=== PATIENT | male | born 1940 | race Caucasian/White ===

== ENCOUNTER 2017-03-25 01:59 | Inpatient (IN) | payer OTHER, MEDICARE ==
[2017-03-25] MEDS ORDERED: ONDANSETRON 4 MG/2 ML VIAL IVPB ONE (02:06)
[2017-03-25] MEDS ORDERED: SODIUM CHLORIDE 1,000 ML IV ONE (02:06)
--- NOTE | 2017-03-25 02:11 | PDOC ---
History of Present Illness - General Chief Complaint: Pain Stated Complaint: ABD PAIN/VOMITING Time Seen by Provider: 03/25/17 02:05 History Source: Patient Exam Limitations: No Limitations - History of Present Illness Initial Comments: 03/25/17 02:11 This is a elderly 76-year-old male who comes in complaining of nausea vomiting and abdominal pain. Patient said symptoms began approximately 4 hours ago. Patient said he been some peanuts prior to the onset of the vomiting however patient denies of pain at ALLERGY and has had peanuts many times in the past. Patient has a history significant for abdominal surgery a number years ago patient said he had surgery on his colon. Patient otherwise says he is healthy he denies any medications and any medical problems. Patient denies history of similar symptoms in the past. PAST MEDICAL HISTORY: Hemorrhoids PAST SURGICAL HISTORY: As per history of present illness FAMILY HISTORY: no pertinant history SOCIAL HISTORY: Pt lives with family and is retired MEDICATIONS: reviewed ALLERGIES: As per nursing notes Review of Systems General: No fevers or chills, no weakness, no weight loss HEENT: No change in vision. No sore throat,. No ear pain CardioVascular: No chest pain or shortness of breath Respiratory:No cough, or wheezing. Gastrointestinal: Nausea and vomiting, no diarrhea, hemorrhoids with some bleeding from the hemorrhoids as per patient no bloody stools Genitourinary: No dysuria, hematuria, or frequency Musculoskeletal: No joint or muscle pain or swelling Neurologic: No headache, vertigo, dizziness or loss of consciousness Psychiatric: nor depression Skin: No rashes or easy bruising Endocrine: no increased thirst or abnormal weight change Allergic: no skin or latex allergy All other systems reviewed and normal Exam: General: Well-nourished well-developed individual, no acute distress HEENT: Throat: Normal, tonsils normal, no erythema or exudate Neck: Supple, no meningeal signs, no lymphadenopathy Eyes::Pupils equal reactive and round, extraocular motion intact Chest: Nontender to palpation Cardiac: S1-S2 normal, regular rate and rhythm, no murmurs rubs or gallops Respiratory: Lungs clear to auscultation bilateral Abdomen: Soft, somewhat distended with some high-pitched bowel sounds and moderately tender to palpation diffusely, no guarding or rebound Extremities: Warm, dry, no cyanosis, clubbing, or edema Skin: No rashes Neuro: Alert and oriented x3, nonfocal exam, grossly intact, normal gait Psych: Normal mood and affect 03/25/17 02:44 Assessment and plan: This is a 76-year-old male who comes in complaining of nausea and vomiting. Patient had a workup that included a CAT scan that showed a small bowel obstruction. Patient will be admitted to an inpatient bed. Patient admitted under Dr. Simmons service discussed case with Dr. Simmons Past History - Past Medical History Allergies/Adverse Reactions: Allergies Allergy/AdvReac Type Severity Reaction Status Date / Time No Known Allergies Allergy Verified 05/16/16 13:07 - Surgical History Abdominal Surgery: Yes - Psycho/Social/Smoking Cessation Hx Anxiety: No Suicidal Ideation: No Smoking History: Unknown if ever smoked Have you smoked in the past 12 months: No Number of Cigarettes Smoked Daily: 0 Information on smoking cessation initiated: No Hx Alcohol Use: No Drug/Substance Use Hx: No Substance Use Type: Alcohol *Physical Exam - Vital Signs Last Vital Signs Temp Pulse Resp BP Pulse Ox 97.8 F 95 H 14 150/90 99 03/25/17 02:02 03/25/17 02:02 03/25/17 02:02 03/25/17 02:02 03/25/17 02:02 ED Treatment Course - LABORATORY CBC & Chemistry Diagram: 03/25/17 08:20 03/25/17 08:20 *DC/Admit/Observation/Transfer Diagnosis at time of Disposition: Small bowel obstruction - Discharge Dispostion Condition at time of disposition: Good Admit: Yes
[2017-03-25] MEDS ORDERED: ONDANSETRON 4 MG/2 ML VIAL ONE (02:21)
[2017-03-25 03:07] LABS: BASOPHIL 0.3 % (0-2.0); EOSINOPHIL 0.1 % (0-4.5); MCH 27.9 pg (25.7-33.7); MCHC 32.8 g/dl (32.0-35.9); MEAN CELL VOLUME 85.2 fl (80-96); MEAN PLT VOLUME 9.1 fl (7.5-11.1); NEUTROPHILS 83.8 % (42.8-82.8); PLATELET COUNT 301 K/MM3 (134-434); RDW 13.6 % (11.9-15.9); WHITE BLOOD COUNT 15.6 K/mm3 (4.0-10.0)
[2017-03-25 03:34] LABS: ALBUMIN 4.2 g/dl (3.4-5.0); BILIRUBIN,TOTAL 1.2 mg/dL (0.2-1.0); COCKROFT - GAULT 71.66; CREATININE 1.2 mg/dL (0.7-1.3)
[2017-03-25 03:37] LABS: TROPONIN I 0.02 ng/ml (0.00-0.05)
[2017-03-25] MEDS ORDERED: SODIUM CHLORIDE 1,000 ML IV SCH ×2 (04:10→08:42)
[2017-03-25] MEDS ORDERED: ONDANSETRON 4 MG/2 ML VIAL IVPB PRN (04:10)
[2017-03-25] MEDS ORDERED: HYDROmorphone HCL CARPU-JECT 1 MG/1 ML DISP.SYRIN IVPB PRN (04:10)
[2017-03-25 05:42] VITALS: BMI 27.8
--- NOTE | 2017-03-25 07:53 | EKG ---
Test Reason : Blood Pressure : / mmHG Vent. Rate : 086 BPM Atrial Rate : 086 BPM P-R Int : 198 ms QRS Dur : 084 ms QT Int : 362 ms P-R-T Axes : 045 007 021 degrees QTc Int : 433 ms SINUS RHYTHM LEFT ATRIAL ENLARGEMENT NO PREVIOUS ECGS AVAILABLE Confirmed by TIBURCIO ROMERO MD ([id number] on 03/25/2017 7:53:20 AM Referred By: MD TONG Confirmed By:TIBURCIO ROMERO MD
[2017-03-25] MEDS ORDERED: SODIUM CHLORIDE 0.9% 1000 ML INFUS.BAG IV ONE (08:40)
[2017-03-25 09:12] LABS: MCH 28.9 pg (25.7-33.7); MCHC 33.9 g/dl (32.0-35.9); MEAN PLT VOLUME 8.4 fl (7.5-11.1); PLATELET COUNT 331 K/MM3 (134-434); RDW 12.9 % (11.9-15.9); WHITE BLOOD COUNT 10.9 K/mm3 (4.0-10.8)
[2017-03-25 09:23] LABS: INR 1.15 (0.82-1.09); PROTHROMBIN TIME (PATIENT) 12.8 SEC (10.2-13.0)
[2017-03-25 09:32] LABS: ANION GAP 9 (8-16); CO2 26 mmol/L (22-28); GLUCOSE,RANDOM 129 mg/dl (74-106)
[2017-03-25 10:08] LABS: CPK(DFH) 88 IU/L (38-174)
[2017-03-25 10:57] LABS: TROPONIN I (DFP) < 0.03 ng/ml (0.03-0.50)
--- NOTE | 2017-03-25 12:35 | CONSULT ---
Consult Consult Specialty:: General Surgery Referred by:: Dr. Simmons Reason for Consultation:: small bowel obstruction - History of Present Illness Chief Complaint: bloating, upper abd pain, vomiting History of Present Illness: Pt seen and examined at bedside with family present. 76yoM with h/o colon CA over 10 yrs ago s/p left colectomy presented to ER c/o upper abdominal pain, bloating and vomiting. He has had bloating on and off for about a week, and saw his PMD, who was not concerned. He has been eating normally and having normal BMs daily, except it was hard a few days ago and got better with MOM. Yesterday , he had more pain in the upper abdomen, left greater than right, and started vomiting, at which point he came to the ER. He had emesis x 1-2 at hospital, but tolerated oral contrast for CT. He is mildly nauseated now, but feeling better. Workup showed wbc 15 (now down to 10), normal lytes, BUN/Cr slightly up , and CT showed proximal SBO with dilated, contrast-filled loops in the left upper and mid-abdomen. On my review, colon appearance is consistent with left colectomy, and there appear to be about 3 clips in the splenic flexure area. Distal SB is decompressed; there is some stool and gas throughout the colon. Pt reports normal BM yesterday, no flatus today, probably not yesterday, but + flatus before that. He was admitted to medicine with small bowel obstruction, and the nurse placed an NGT earlier with immediate output of ~300ml, now there is 1300ml in canister, light brown. Cr is improving, from 1.2 to 1. - History Source History Provided By: Patient, Family Member Limitations to Obtaining History: No Limitations - Past Medical History Cardio/Vascular: Yes: Deep Vein Thrombosis (h/o superficial L calf vein thrombosis, was anticoag for 3months in past) Gastrointestinal: Yes: Cancer (colon s/p left colectomy >10 yrs ago; no chemo) Psych: Yes: Anxiety (situation-related...was on lexapro for brief course last year) - Past Surgical History Past Surgical History: Yes: Cataract Removal (bilateral ~2010), Colectomy (left) - Alcohol/Substance Use Hx Alcohol Use: Yes (wine with dinner daily, occasional beer) Number of Drinks Daily: 1 History of Substance Use: reports: None - Smoking History Smoking history: Former smoker (cigars sometimes years ago) Have you smoked in the past 12 months: No Aproximately how many cigarettes per day: 0 If you are a former smoker, when did you quit?: over 30 years Home Medications - Allergies Allergies/Adverse Reactions: Allergies Allergy/AdvReac Type Severity Reaction Status Date / Time No Known Allergies Allergy Verified 05/16/16 13:07 - Home Medications Home Medications (free text): not taking anything regularly Family Disease History - Family Disease History Family History: Denies (father of old age, mother of fall with head injury) Review of Systems - Review of Systems Constitutional: denies: Chills, Fever, Loss of Appetite Eyes: denies: Blurred Vision, Double Vision HENT: denies: Difficult Swallowing, Throat Pain Neck: denies: Pain on Movement, Swollen Glands Cardiovascular: denies: Chest Pain, Palpitations, Shortness of Breath Respiratory: denies: Cough, SOB on Exertion Gastrointestinal: reports: Abdominal Pain (with hpi), Bloating (with hpi), Nausea, Vomiting (3 times at home, also at hospital). denies: Constipation, Diarrhea Genitourinary: denies: Dysuria, Incontinence Musculoskeletal: denies: Back Pain, Joint Pain, Muscle Pain Integumentary: denies: Bruising, Rash Neurological: denies: Dizziness, Headache, Unsteady Gait Psychiatric: reports: Altered Sleep Pattern (had trouble in past), Anxiety ( related to family worries) Physical Exam Vital Signs: Vital Signs Temperature 980 F H 03/25/17 04:50 Pulse Rate 94 H 03/25/17 04:50 Respiratory Rate 18 03/25/17 04:50 Blood Pressure 166/88 03/25/17 04:50 O2 Sat by Pulse Oximetry (%) 96 03/25/17 04:50 Constitutional: Yes: Well Nourished, No Distress, Calm Eyes: Yes: Conjunctiva Clear, EOM Intact HENT: Yes: Atraumatic, Normocephalic Cardiovascular: Yes: Regular Rate and Rhythm. No: Murmur Respiratory: Yes: Regular, CTA Bilaterally Gastrointestinal: Yes: Normal Bowel Sounds, Soft, Distention (with tympany in upper abdomen), Other (NGT in place draining light brown fluid, 1300ml since placement). No: Tenderness ...Rectal Exam: Yes: Deferred Renal/: No: CVA Tenderness - Left, CVA Tenderness - Right Extremities: No: Calf Tenderness, Deformity Edema: Yes Edema: LLE: Trace (pt states sometimes swells a little "when he drinks") Peripheral Pulses WNL: Yes (radial, femoral, DP bilat) Integumentary: Yes: Other (well-healed midline abdominal scar). No: Rash Neurological: Yes: Alert, Oriented Labs: CBC, BMP 03/25/17 08:20 03/25/17 08:20 Imaging - Results Chest X-ray: Report Reviewed X-ray: Report Reviewed, Image Reviewed (NGT in stomach, some dilated SB in LUQ, no contrast in colon) Cat Scan: Report Reviewed, Image Reviewed (SBO proximal LUQ/left mid-abdomen, few clips apparent in splenic flexure with evidence of left colectomy) EKG: Report Reviewed Problem List - Problems (1) Obstruction of small intestine due to peritoneal adhesion Assessment/Plan: proximal SBO, likely due to adhesions admitted to medicine NGT in place with good output - maintain to low continuous suction (80-100) NPO and IV hydration - switch to maintenance fluid tomorrow serial AXR daily (ordered) and monitor labs coags normal, T&S sent in case of OR GI and DVT prophylaxis, pt currently ambulatory discussed with patient and family at bedside plan as above with intention to avoid OR if possible they understand that if obstruction fails to resolve after several days, or he deteriorates, that surgery may be necessary will follow with you daily Code(s): K56.5 - INTESTINAL ADHESIONS W OBST (POSTPROCEDURAL) (POSTINFECTION) Assessment/Plan Thank you for the opportunity to participate in the care of this patient.
[2017-03-25] MEDS: PANTOPRAZOLE SODIUM 100 ML IVPB SCH ×2 (12:52→21:14)
--- NOTE | 2017-03-25 14:38 | HP ---
Admitting History and Physical - Primary Care Physician PCP: Anjana Simmons - Admission Chief Complaint: abdominal pain History of Present Illness: 76yoM with h/o colon CA over 10 yrs ago s/p left colectomy presented to ER c/o upper abdominal pain, bloating and vomiting. He has had bloating on and off for about a week, and saw his PMD, who was not concerned. He has been eating normally and having normal BMs daily, except it was hard a few days ago and got better with MOM. Yesterday, he had more pain in the upper abdomen, left greater than right, and started vomiting, at which point he came to the ER. He had emesis x 1-2 at hospital, but tolerated oral contrast for CT. He is mildly nauseated now, but feeling better. - Past Medical History Cardiovascular: Yes: Deep Vein Thrombosis (h/o superficial L calf vein thrombosis, was anticoag for 3months in past) Gastrointestinal: Yes: Cancer (colon s/p left colectomy >10 yrs ago; no chemo) Psych: Yes: Anxiety (situation-related...was on lexapro for brief course last year) - Past Surgical History Past Surgical History: Yes: Cataract Removal (bilateral ~2010), Colectomy (left) - Smoking History Smoking history: Former smoker (cigars sometimes years ago) Have you smoked in the past 12 months: No Aproximately how many cigarettes per day: 0 If you are a former smoker, when did you quit?: over 30 years - Alcohol/Substance Use Hx Alcohol Use: Yes (wine with dinner daily, occasional beer) Number of Drinks Daily: 1 History of Substance Use: reports: None Home Medications - Allergies Allergies/Adverse Reactions: Allergies Allergy/AdvReac Type Severity Reaction Status Date / Time No Known Allergies Allergy Verified 05/16/16 13:07 Physical Examination Vital Signs: Vital Signs Temperature 980 F H 03/25/17 04:50 Pulse Rate 94 H 03/25/17 04:50 Respiratory Rate 18 03/25/17 04:50 Blood Pressure 166/88 03/25/17 04:50 O2 Sat by Pulse Oximetry (%) 96 03/25/17 04:50 Constitutional: Yes: No Distress HENT: Yes: Atraumatic Neck: Yes: Supple Cardiovascular: Yes: Regular Rate and Rhythm Respiratory: Yes: CTA Bilaterally Gastrointestinal: Yes: Hypoactive Bowel Sounds Extremities: Yes: WNL Neurological: Yes: Alert, Oriented Labs: CBC, BMP 03/25/17 08:20 03/25/17 08:20 Problem List - Problems (1) Small bowel obstruction Assessment/Plan: npo, ivf ngt gi and surgery on board Code(s): K56.69 - OTHER INTESTINAL OBSTRUCTION (2) Obstruction of small intestine due to peritoneal adhesion Code(s): K56.5 - INTESTINAL ADHESIONS W OBST (POSTPROCEDURAL) (POSTINFECTION) Assessment/Plan Laboratory Tests 03/25/17 03/25/17 03/25/17 02:30 02:30 02:30 WBC 15.6 H RBC 5.42 Hgb 15.1 Hct 46.2 MCV 85.2 MCHC 32.8 RDW 13.6 Plt Count 301 MPV 9.1 Neutrophils % 83.8 H Lymphocytes % 8.5 Monocytes % 7.3 Eosinophils % 0.1 Basophils % 0.3 INR PTT (Actin FS) Sodium 142 Potassium 4.4 Chloride 103 Carbon Dioxide 29 Anion Gap 10 BUN 30 H Creatinine 1.2 Creat Clearance w eGFR 59.02 Random Glucose 162 H Calcium 9.0 Total Bilirubin 1.2 H AST 24 ALT 31 Alkaline Phosphatase 68 Creatine Kinase 126 Troponin I 0.02 Total Protein 8.0 Albumin 4.2 Lipase 102 Blood Type Antibody Screen 03/25/17 03/25/17 03/25/17 08:20 08:20 08:20 WBC 10.9 H RBC 5.38 Hgb 15.5 Hct 45.7 MCV 85.0 MCHC 33.9 RDW 12.9 Plt Count 331 MPV 8.4 Neutrophils % Lymphocytes % Monocytes % Eosinophils % Basophils % INR 1.15 PTT (Actin FS) Sodium Potassium Chloride Carbon Dioxide Anion Gap BUN Creatinine Creat Clearance w eGFR Random Glucose Calcium Total Bilirubin AST ALT Alkaline Phosphatase Creatine Kinase 88 Troponin I < 0.03 L Total Protein Albumin Lipase Blood Type Antibody Screen 03/25/17 03/25/17 03/25/17 08:20 08:20 08:20 WBC RBC Hgb Hct MCV MCHC RDW Plt Count MPV Neutrophils % Lymphocytes % Monocytes % Eosinophils % Basophils % INR PTT (Actin FS) 27.6 Sodium 139 Potassium 4.1 Chloride 104 Carbon Dioxide 26 Anion Gap 9 BUN 27 H D Creatinine 1.0 Creat Clearance w eGFR Random Glucose 129 H D Calcium 9.0 Total Bilirubin AST ALT Alkaline Phosphatase Creatine Kinase Troponin I Total Protein Albumin Lipase Blood Type A POSITIVE Antibody Screen Negative 03/25/17 08:20 WBC RBC Hgb Hct MCV MCHC RDW Plt Count MPV Neutrophils % Lymphocytes % Monocytes % Eosinophils % Basophils % INR PTT (Actin FS) Sodium Potassium Chloride Carbon Dioxide Anion Gap BUN Creatinine Creat Clearance w eGFR Random Glucose Calcium Total Bilirubin AST ALT Alkaline Phosphatase Creatine Kinase Troponin I Total Protein Albumin Lipase Blood Type A POSITIVE Antibody Screen Active Medications Generic Name Dose Route Start Last Admin Trade Name Freq PRN Reason Stop Dose Admin Enoxaparin Sodium 40 mg 03/25/17 13:15 Lovenox - SQ DAILY WILLAM Hydromorphone HCl 1 mg 03/25/17 04:10 Dilaudid Injection - IVPB Q4H PRN Sodium Chloride 1,000 mls @ 100 mls/hr 03/25/17 08:42 Normal Saline - IV ASDIR WILLAM Pantoprazole Sodium 100 mls @ 200 mls/hr 03/25/17 12:00 03/25/17 12:52 Protonix 40mg Ivpb (Pre-Docked) IVPB 200 mls/hr BID WILLAM Administration Ondansetron HCl 4 mg 03/25/17 04:10 Zofran Injection IVPB Q4H PRN NAUSEA AND/OR VOMITING
[2017-03-25] MEDS: ENOXAPARIN NA (PORCINE) 40 MG/0.4 ML DISP.SYRIN SQ SCH (15:00)
[2017-03-26 08:00] LABS: BASOPHIL 0.3 % (0-2.0); EOSINOPHIL 1.4 % (0-4.5); MCH 28.1 pg (25.7-33.7); MCHC 32.9 g/dl (32.0-35.9); MEAN CELL VOLUME 85.5 fl (80-96); NEUTROPHILS 58.1 % (42.8-82.8); PLATELET COUNT 302 K/MM3 (134-434); RDW 12.7 % (11.9-15.9); WHITE BLOOD COUNT 8.1 K/mm3 (4.0-10.8)
[2017-03-26 08:02] LABS: ANION GAP 7 (8-16); CALCIUM 8.3 mg/dl (8.4-10.2); CO2 27 mmol/L (22-28); GLUCOSE,RANDOM 109 mg/dl (74-106)
[2017-03-26] MEDS: ENOXAPARIN NA (PORCINE) 40 MG/0.4 ML DISP.SYRIN SQ SCH (09:10)
[2017-03-26] MEDS: PANTOPRAZOLE SODIUM 100 ML IVPB SCH ×2 (09:11→21:24)
--- NOTE | 2017-03-26 09:14 | PN ---
Progress Note, Physician Chief Complaint: SBO History of Present Illness: HD2 SBO Pt seen and examined in bed, resting comfortably. No complaints, feeling better. + flatus early this am, no BM yet here. No nausea, no pain. NGT with 1750 out yesterday, 400ml last shift till 7am, light yellow/brown. Urine still aleks. - Current Medication List Current Medications: Active Medications Enoxaparin Sodium (Lovenox -) 40 mg SQ DAILY [facility] Last Admin: 03/25/17 15:00 Dose: 40 mg Hydromorphone HCl (Dilaudid Injection -) 1 mg IVPB Q4H PRN Sodium Chloride (Normal Saline -) 1,000 mls @ 100 mls/hr IV ASDIR [facility] Pantoprazole Sodium (Protonix 40mg Ivpb (Pre-Docked)) 100 mls @ 200 mls/hr IVPB BID [facility] Last Admin: 03/25/17 21:14 Dose: 200 mls/hr Ondansetron HCl (Zofran Injection) 4 mg IVPB Q4H PRN PRN Reason: NAUSEA AND/OR VOMITING Last Admin: 03/25/17 16:24 Dose: 4 mg - Objective Vital Signs: Vital Signs Temperature 98.5 F 03/26/17 06:18 Pulse Rate 71 03/26/17 06:18 Respiratory Rate 18 03/26/17 08:02 Blood Pressure 143/77 03/26/17 06:18 O2 Sat by Pulse Oximetry (%) 97 03/26/17 08:02 Constitutional: Yes: No Distress, Calm Cardiovascular: Yes: Regular Rate and Rhythm. No: Murmur Respiratory: Yes: Regular, CTA Bilaterally Gastrointestinal: Yes: Soft, Distention (mild, improved/less than yesterday, no tympany), Hypoactive Bowel Sounds. 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
--- NOTE | 2017-03-26 13:03 | PN ---
Progress Note (short form) - Note Progress Note: Patient seen and consult dictated. Patient with likely SBO due to adhesions from prior abdominal/colon surgery. Has NG in place with good output over past day but minimal output (100cc) since this am (6 hours). No BM and only small amount of flatus. Repeat AXR pending. Hopefully has resolving SBO but if does not start to pass gas/have BM, may need Surgical intervention. Agree with management per Surgery. Please recall if I can be of assistance
--- NOTE | 2017-03-26 13:58 | CONS ---
DATE OF CONSULTATION: 03/26/2017 REQUESTING PHYSICIAN: Anjana Simmons MD REASON FOR CONSULTATION: I was asked to evaluate this 76-year-old gentleman admitted with abdominal distension and small bowel obstruction. HISTORY OF PRESENT ILLNESS: The patient is a 76-year-old gentleman with a history of a left hemicolectomy for a ? malignant polyp over 10 years ago. He also has a history of a deep vein thrombosis in the past. The patient has been doing well and reports having had a normal colonoscopy approximately 3 years ago by his medical resident in [place]. The day of admission he developed abdominal pain, bloating and vomiting. He states he may have had some intermittent bloating for the week prior to admission. He was seen in the emergency room at [facility] with an abdominal x-ray consistent with a small bowel obstruction with multiple air fluid levels predominantly in the left upper quadrant. A CT scan of the abdomen and pelvis was subsequently performed, which showed moderate dilatation of the proximal and mid small bowel loops consistent also with a mid small bowel obstruction. The patient was treated with an NG tube for decompression, and it drained over 1700 mL of fluid and feels markedly improved. Last night, he states he passed a small amount of flatus, but has not had any further flatus this morning, nor any bowel movement. He has only had 100 mL of output from the NG tube over the 6 hours prior to this consult. His blood tests included an initial white count of 15.6, which is currently 8.1, and a hematocrit of 46.2, which is now 43.5. His chemistries are with normal electrolytes with the exception of an initial BUN of 30 and creatinine of 1.2, which are now BUN 24 and creatinine 1.0. His liver chemistries are unremarkable. The patient has been seen by Surgery and is being followed with the NG tube in place. He is receiving IV fluids. PHYSICAL EXAMINATION: General: He is a well-developed, well-nourished gentleman with pink conjunctiva. Lungs: Clear. Cardiac: Regular rate and rhythm. Abdomen: Soft, flat, with a few bowel sounds ? related to NG tube. No masses, and a well-healed midline surgical scar. IMPRESSION: Patient with likely small bowel obstruction due to adhesions from prior colon surgery. It appears to be clinically improved with nasogastric decompression, and hopefully the small bowel obstruction will resolve with this conservative approach. It is a good sign that he has had minimal output from the nasogastric tube over the past 6 hours. However, if he does not continue to improve and pass stool and/or gas, surgical intervention may be indicated for possible lysis of adhesions and/or resolution of the bowel obstruction. I agree with plans for surgery and will follow as needed. NIKIA MILLER M.D. [id number]
--- NOTE | 2017-03-26 17:49 | PN ---
Progress Note, Physician - Current Medication List Current Medications: Active Medications Enoxaparin Sodium (Lovenox -) 40 mg SQ DAILY [facility] Last Admin: 03/26/17 09:10 Dose: 40 mg Hydromorphone HCl (Dilaudid Injection -) 1 mg IVPB Q4H PRN Pantoprazole Sodium (Protonix 40mg Ivpb (Pre-Docked)) 100 mls @ 200 mls/hr IVPB BID WILLAM Last Admin: 03/26/17 09:11 Dose: 200 mls/hr Dextrose/Sodium Chloride (D5-1/2ns -) 1,000 mls @ 125 mls/hr IV ASDIR WILLAM Ondansetron HCl (Zofran Injection) 4 mg IVPB Q4H PRN PRN Reason: NAUSEA AND/OR VOMITING Last Admin: 03/25/17 16:24 Dose: 4 mg - Objective Vital Signs: Vital Signs Temperature 98.3 F 03/26/17 14:15 Pulse Rate 71 03/26/17 14:15 Respiratory Rate 18 03/26/17 14:15 Blood Pressure 141/77 03/26/17 14:15 O2 Sat by Pulse Oximetry (%) 95 03/26/17 14:15 Constitutional: Yes: No Distress HENT: Yes: Atraumatic Neck: Yes: Supple Cardiovascular: Yes: Regular Rate and Rhythm Respiratory: Yes: CTA Bilaterally Gastrointestinal: Yes: Hyperactive Bowel Sounds Extremities: Yes: WNL Peripheral Pulses WNL: Yes Neurological: Yes: Alert, Oriented Labs: CBC, BMP 03/26/17 07:20 03/26/17 07:20 INR, PTT INR 1.15 (0.82-1.09) 03/25/17 08:20 Problem List - Problems (1) Small bowel obstruction Assessment/Plan: npo, ivf ngt gi and surgery on board Code(s): K56.69 - OTHER INTESTINAL OBSTRUCTION (2) 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
[2017-03-27 07:53] LABS: BASOPHIL 0.9 % (0-2.0); EOSINOPHIL 1.7 % (0-4.5); MCH 28.6 pg (25.7-33.7); MCHC 33.5 g/dl (32.0-35.9); MEAN CELL VOLUME 85.5 fl (80-96); MEAN PLT VOLUME 7.9 fl (7.5-11.1); NEUTROPHILS 65.6 % (42.8-82.8); PLATELET COUNT 282 K/MM3 (134-434); RDW 12.6 % (11.9-15.9); WHITE BLOOD COUNT 7.1 K/mm3 (4.0-10.8)
[2017-03-27 08:10] LABS: ANION GAP 7 (8-16); CALCIUM 8.4 mg/dl (8.4-10.2); CO2 28 mmol/L (22-28); CREATININE 0.9 mg/dl (0.6-1.3); GLUCOSE,RANDOM 115 mg/dl (74-106)
[2017-03-27] MEDS: PANTOPRAZOLE SODIUM 100 ML IVPB SCH ×2 (10:11→21:55)
[2017-03-27] MEDS: ENOXAPARIN NA (PORCINE) 40 MG/0.4 ML DISP.SYRIN SQ SCH (10:11)
[2017-03-27] MEDS: DEXTROSE 5%-0.45% SALINE 1,000 ML IV SCH (10:11)
--- NOTE | 2017-03-27 15:26 | PN ---
Progress Note, Physician Chief Complaint: SBO History of Present Illness: HD3 SBO Pt seen and examined in bed, resting comfortably. No complaints, feeling better. + flatus, still no BM yet here. No nausea, no pain. NGT with 100ml each last 2 shifts. Ambulating. - Current Medication List Current Medications: Active Medications Enoxaparin Sodium (Lovenox -) 40 mg SQ DAILY [facility] Last Admin: 03/27/17 10:11 Dose: 40 mg Hydromorphone HCl (Dilaudid Injection -) 1 mg IVPB Q4H PRN Pantoprazole Sodium (Protonix 40mg Ivpb (Pre-Docked)) 100 mls @ 200 mls/hr IVPB BID [facility] Last Admin: 03/27/17 10:11 Dose: 200 mls/hr Dextrose/Sodium Chloride (D5-1/2ns -) 1,000 mls @ 125 mls/hr IV ASDIR [facility] Last Admin: 03/27/17 10:11 Dose: 125 mls/hr Ondansetron HCl (Zofran Injection) 4 mg IVPB Q4H PRN PRN Reason: NAUSEA AND/OR VOMITING Last Admin: 03/25/17 16:24 Dose: 4 mg - Objective Vital Signs: Vital Signs Temperature 98.5 F 03/27/17 14:19 Pulse Rate 75 03/27/17 14:19 Respiratory Rate 18 03/27/17 14:19 Blood Pressure 148/75 03/27/17 14:19 O2 Sat by Pulse Oximetry (%) 97 03/27/17 14:19 Constitutional: Yes: No Distress, Calm Eyes: Yes: Conjunctiva Clear (with mild injection of sclerae), Tearing (left eye ) HENT: Yes: Other (NGT in place - resecured to nose, at 75cm at nares) Cardiovascular: Yes: Regular Rate and Rhythm. No: Murmur Respiratory: Yes: Regular, CTA Bilaterally Gastrointestinal: Yes: Normal Bowel Sounds (present x4), Soft. 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 Assessment/Plan: proximal SBO, likely due to adhesions NGT in place with minimal output - maintain to low continuous suction (80-100) NPO and IV hydration, getting D5 in fluids, will add K+ to maintenance fluids ( 3.7 today) AXR consistent with continued obstruction, but decreased NG output suggests possibly partial passage of fluid monitor labs, GI and DVT prophylaxis, encourage OOB/ambulation serial AXR, will continue to follow may consider repeat contrast study through NGT Wednesday morning if still not open, or pt deteriorates clinically, would need to consider OR discussed with pt, , daughter at bedside that surgery could result in resection of part of small bowel, less likely colon, and possible (though less likely) ostomy; R/B/A of exploratory laparotomy understood by all Code(s): K56.5 - INTESTINAL ADHESIONS W OBST (POSTPROCEDURAL) (POSTINFECTION)
[2017-03-27] MEDS: DEXTROSE 5%-0.45% SALINE 1,000 ML with POTASSIUM CHLORIDE 20 MEQ IVPB SCH (16:21)
[2017-03-27] MEDS ORDERED: BISACODYL 10 MG SUPP.RECT PR PRN (17:33)
--- NOTE | 2017-03-27 17:40 | PN ---
Progress Note, Physician History of Present Illness: ngt in place passing gas denerally constipated last bm on wednesday and was hard - Current Medication List Current Medications: Active Medications Bisacodyl (Dulcolax Suppository -) 10 mg CA PRN PRN PRN Reason: CONSTIPATION Enoxaparin Sodium (Lovenox -) 40 mg SQ DAILY [facility] Last Admin: 03/27/17 10:11 Dose: 40 mg Pantoprazole Sodium (Protonix 40mg Ivpb (Pre-Docked)) 100 mls @ 200 mls/hr IVPB BID [facility] Last Admin: 03/27/17 10:11 Dose: 200 mls/hr Potassium Chloride 20 meq/ (Dextrose/Sodium Chloride) 1,010 mls @ 125 mls/hr IVPB ASDIR [facility] Last Admin: 03/27/17 16:21 Dose: 125 mls/hr Ondansetron HCl (Zofran Injection) 4 mg IVPB Q4H PRN PRN Reason: NAUSEA AND/OR VOMITING Last Admin: 03/25/17 16:24 Dose: 4 mg - Objective Vital Signs: Vital Signs Temperature 98.5 F 03/27/17 14:19 Pulse Rate 75 03/27/17 14:19 Respiratory Rate 18 03/27/17 14:19 Blood Pressure 148/75 03/27/17 14:19 O2 Sat by Pulse Oximetry (%) 97 03/27/17 14:19 Constitutional: Yes: No Distress HENT: Yes: Atraumatic Neck: Yes: Supple Cardiovascular: Yes: Regular Rate and Rhythm Respiratory: Yes: CTA Bilaterally Gastrointestinal: Yes: Normal Bowel Sounds Extremities: Yes: WNL Edema: No Peripheral Pulses WNL: Yes Neurological: Yes: Alert, Oriented Labs: CBC, BMP 03/27/17 07:45 03/27/17 07:45 INR, PTT INR 1.15 (0.82-1.09) 03/25/17 08:20 Problem List - Problems (1) Small bowel obstruction Assessment/Plan: npo, ivf ngt gi and surgery on board Code(s): K56.69 - OTHER INTESTINAL OBSTRUCTION (2) 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
[2017-03-27] MEDS ORDERED: BISACODYL 10 MG SUPP.RECT RC PRN (17:59)
[2017-03-28 08:23] LABS: EOSINOPHIL 1.1 % (0-4.5); MCH 28.8 pg (25.7-33.7); MCHC 33.9 g/dl (32.0-35.9); MEAN CELL VOLUME 84.9 fl (80-96); MEAN PLT VOLUME 9.1 fl (7.5-11.1); NEUTROPHILS 62.2 % (42.8-82.8); PLATELET COUNT 289 K/MM3 (134-434); RDW 12.2 % (11.9-15.9); WHITE BLOOD COUNT 8.4 K/mm3 (4.0-10.8)
[2017-03-28 08:28] LABS: ANION GAP 10 (8-16); CALCIUM 8.6 mg/dl (8.4-10.2); CO2 26 mmol/L (22-28); CREATININE 0.9 mg/dl (0.6-1.3); GLUCOSE,RANDOM 87 mg/dl (74-106)
[2017-03-28] MEDS: ENOXAPARIN NA (PORCINE) 40 MG/0.4 ML DISP.SYRIN SQ SCH (09:20)
[2017-03-28] MEDS: PANTOPRAZOLE SODIUM 100 ML IVPB SCH ×2 (09:21→21:40)
--- NOTE | 2017-03-28 12:34 | PN ---
Progress Note, Physician Chief Complaint: SBO History of Present Illness: HD4 SBO Pt seen and examined in bed, resting comfortably. No complaints, feeling better. + flatus, + large BMs, hard and then soft and looser. No nausea, no pain. NGT with minimal output overnight. Ambulating. - Current Medication List Current Medications: Active Medications Bisacodyl (Dulcolax Suppository -) 10 mg RC DAILY PRN PRN Reason: CONSTIPATION Last Admin: 03/27/17 18:21 Dose: 10 mg Enoxaparin Sodium (Lovenox -) 40 mg SQ DAILY [facility] Last Admin: 03/28/17 09:20 Dose: 40 mg Pantoprazole Sodium (Protonix 40mg Ivpb (Pre-Docked)) 100 mls @ 200 mls/hr IVPB BID [facility] Last Admin: 03/28/17 09:21 Dose: 200 mls/hr Potassium Chloride 20 meq/ (Dextrose/Sodium Chloride) 1,010 mls @ 125 mls/hr IVPB ASDIR [facility] Last Admin: 03/27/17 16:21 Dose: 125 mls/hr Ondansetron HCl (Zofran Injection) 4 mg IVPB Q4H PRN PRN Reason: NAUSEA AND/OR VOMITING Last Admin: 03/25/17 16:24 Dose: 4 mg - Objective Vital Signs: Vital Signs Temperature 98.0 F 03/28/17 06:14 Pulse Rate 70 03/28/17 06:14 Respiratory Rate 18 03/28/17 08:06 Blood Pressure 159/76 03/28/17 06:14 O2 Sat by Pulse Oximetry (%) 96 03/28/17 08:06 Constitutional: Yes: No Distress, Calm Cardiovascular: Yes: Regular Rate and Rhythm. No: Murmur Respiratory: Yes: Regular, CTA Bilaterally Gastrointestinal: Yes: Normal Bowel Sounds, Soft, Distention (minimal). 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
--- NOTE | 2017-03-28 14:37 | PN ---
Progress Note, Physician History of Present Illness: ngt in place had good bm after suppository yesterday - Current Medication List Current Medications: Active Medications Bisacodyl (Dulcolax Suppository -) 10 mg RC DAILY PRN PRN Reason: CONSTIPATION Last Admin: 03/27/17 18:21 Dose: 10 mg Enoxaparin Sodium (Lovenox -) 40 mg SQ DAILY [facility] Last Admin: 03/28/17 09:20 Dose: 40 mg Pantoprazole Sodium (Protonix 40mg Ivpb (Pre-Docked)) 100 mls @ 200 mls/hr IVPB BID [facility] Last Admin: 03/28/17 09:21 Dose: 200 mls/hr Potassium Chloride 20 meq/ (Dextrose/Sodium Chloride) 1,010 mls @ 125 mls/hr IVPB ASDIR [facility] Last Admin: 03/27/17 16:21 Dose: 125 mls/hr Ondansetron HCl (Zofran Injection) 4 mg IVPB Q4H PRN PRN Reason: NAUSEA AND/OR VOMITING Last Admin: 03/25/17 16:24 Dose: 4 mg - Objective Vital Signs: Vital Signs Temperature 98.0 F 03/28/17 06:14 Pulse Rate 70 03/28/17 06:14 Respiratory Rate 18 03/28/17 08:06 Blood Pressure 159/76 03/28/17 06:14 O2 Sat by Pulse Oximetry (%) 96 03/28/17 08:06 HENT: Yes: Atraumatic Neck: Yes: Supple Cardiovascular: Yes: Regular Rate and Rhythm Respiratory: Yes: CTA Bilaterally Gastrointestinal: Yes: Normal Bowel Sounds Extremities: Yes: WNL Neurological: Yes: Alert, Oriented Labs: CBC, BMP 03/28/17 06:00 03/28/17 06:00 INR, PTT INR 1.15 (0.82-1.09) 03/25/17 08:20 Problem List - Problems (1) Small bowel obstruction Assessment/Plan: npo, ivf ngt contrast given xray done report reviewed will repeat xray in 2 hrs d/w surgery Code(s): K56.69 - OTHER INTESTINAL OBSTRUCTION (2) 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
[2017-03-28] MEDS: DEXTROSE 5%-0.45% SALINE 1,000 ML with POTASSIUM CHLORIDE 20 MEQ IVPB SCH (21:42)
[2017-03-29 06:34] VITALS: BP 146/82; PULSE 67; TEMP 98
--- NOTE | 2017-03-29 08:00 | DS ---
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
[2017-03-29 09:27] LABS: BASOPHIL 0.3 % (0-2.0); EOSINOPHIL 1.5 % (0-4.5); MCH 28.6 pg (25.7-33.7); MCHC 33.7 g/dl (32.0-35.9); MEAN PLT VOLUME 8.3 fl (7.5-11.1); NEUTROPHILS 63.2 % (42.8-82.8); PLATELET COUNT 294 K/MM3 (134-434); RDW 13.3 % (11.9-15.9); WHITE BLOOD COUNT 7.4 K/mm3 (4.0-10.0)
[2017-03-29 09:43] LABS: ALBUMIN 3.7 g/dl (3.5-5.0); ALK PHOS 52 U/L (32-92); ANION GAP 7 (8-16); BILIRUBIN,TOTAL 2.2 mg/dl (0.2-1.0); CALCIUM 8.9 mg/dl (8.4-10.2); CO2 26 mmol/L (22-28); CREATININE 0.9 mg/dl (0.6-1.3); GLUCOSE,RANDOM 98 mg/dl (74-106); SGOT/AST 40 U/L (10-42); SGPT/ALT 45 U/L (10-40)
[2017-03-29] MEDS: PANTOPRAZOLE SODIUM 100 ML IVPB SCH (10:30)
[2017-03-29] MEDS: ENOXAPARIN NA (PORCINE) 40 MG/0.4 ML DISP.SYRIN SQ SCH (10:30)
--- NOTE | 2017-03-29 11:28 | PN ---
Progress Note, Physician Chief Complaint: SBO History of Present Illness: HD5 SBO - now resolved Pt seen and examined in bed, resting comfortably. No complaints, feeling better. + flatus, + BMs. Tolerating clears with no nausea, no pain. NGT removed yesterday ~5pm after XR showed contrast throughout colon. Not particularly hungry. - Current Medication List Current Medications: Active Medications Bisacodyl (Dulcolax Suppository -) 10 mg RC DAILY PRN PRN Reason: CONSTIPATION Last Admin: 03/27/17 18:21 Dose: 10 mg Enoxaparin Sodium (Lovenox -) 40 mg SQ DAILY [facility] Last Admin: 03/29/17 10:30 Dose: 40 mg Pantoprazole Sodium (Protonix 40mg Ivpb (Pre-Docked)) 100 mls @ 200 mls/hr IVPB BID [facility] Last Admin: 03/29/17 10:30 Dose: 200 mls/hr Potassium Chloride 20 meq/ (Dextrose/Sodium Chloride) 1,010 mls @ 125 mls/hr IVPB ASDIR [facility] Last Admin: 03/28/17 21:42 Dose: 125 mls/hr Ondansetron HCl (Zofran Injection) 4 mg IVPB Q4H PRN PRN Reason: NAUSEA AND/OR VOMITING Last Admin: 03/25/17 16:24 Dose: 4 mg - Objective Vital Signs: Vital Signs Temperature 98.0 F 03/29/17 06:29 Pulse Rate 67 03/29/17 06:29 Respiratory Rate 18 03/29/17 06:29 Blood Pressure 146/82 03/29/17 06:29 O2 Sat by Pulse Oximetry (%) 99 03/29/17 06:29 Constitutional: Yes: No Distress, Calm Eyes: Yes: Conjunctiva Clear, EOM Intact Cardiovascular: Yes: Regular Rate and Rhythm. No: Murmur Respiratory: Yes: Regular, CTA Bilaterally Gastrointestinal: Yes: Normal Bowel Sounds, Soft, Distention (minimal to no). 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 Code(s): K56.5 - INTESTINAL ADHESIONS W OBST (POSTPROCEDURAL) (POSTINFECTION)
== END 2017-03-29 13:40 | disposition home or self-care (01) | DRG 390 ==
LOC: FER 01:59 → FM/S 04:11 → UNDOADMIN 04:26 → FM/S 03-28 19:24 → UNDOADMIN 03-28 19:24
PROVIDERS: ADMIT Internal Medicine; ATTEND Internal Medicine
PROC: 0D9670Z Drainage of Stomach with Drainage Device, Via Natural or Artificial Opening (ICD-10-PCS; principal; 2017-03-25)
DX: K56.5 Intestinal adhesions [bands] with obstruction (postinfection) (principal); K59.00 Constipation, unspecified; Z85.038 Personal history of other malignant neoplasm of large intestine; Z86.718 Personal history of other venous thrombosis and embolism
CPT/HCPCS: 36415; 71020-TC; 74020-TC; 74177-TC; 80048; 80053; 82550; 83690; 84484; 85025; 85027; 85610; 85730; 86850; 86900; 86901; 93005; 93010; 99284-25